=== PATIENT | male | born 1995 | race Caucasian/White ===

== ENCOUNTER 2020-04-04 10:07 | Emergency (ER) | payer BC, SELFPAY ==
[2020-04-04 10:30] VITALS: BP 149/71; PULSE 107; RESP 20; TEMP 36.9; O2SAT 97; BMI 26.7
--- NOTE | 2020-04-04 10:48 | HMH.EDUTC ---
[facility] [place] Clinical Impression: Exposure to COVID-19 virus Disposition: Home, Self-Care Condition on Discharge: Good Instructions: Preventing the Spread of Coronavirus Discharge Instructions Additional Instructions: Drink plenty of fluids. Take tylenol for pain or fever. Follow up with your regular doctor. GO TO THE ER FOR ANY WORSENING SYMPTOMS Referrals: Dalton Henderson MD [Primary Care Provider] - Time of Disposition: 10:51 Medical Decision Making - Medical Records Medical records reviewed: No: I reviewed the patient's medical records. - Booker Inquiry Pt receiving controlled substance: No Vital Signs: 04/04/20 10:30 04/04/20 10:55 Temperature 98.4 F 98.4 F Temperature Source Oral Pulse Rate 107 H Pulse Rate [Right Brachial] 107 H Respiratory Rate 20 20 Blood Pressure 149/71 H Blood Pressure [Right Arm] 149/71 H Blood Pressure Mean [Right Arm] 97 Blood Pressure Source [Right Arm] Automatic Cuff Blood Pressure Position [Right Arm] Sitting 02 Sat by Pulse Oximetry 97 Oxygen Delivery Method Room Air [facility] [place] HPI - General Stated complaint: covid exposure Time Seen by Provider: 04/04/20 10:48 Mode of Arrival: Ambulatory Source of Information: Patient Limitations: No Limitations Description of Symptoms (Recalled from Triage Doc. by RN): PATIENT REQUESTING COVID TEST D/T EXPOSURE; DENIES SYMPTOMS HEENT Symptoms (Recalled from RN notes): No Resp Symptoms (Recalled from RN notes): No Skin Symptoms (Recalled from RN notes): No MS Symptoms (Recalled from RN notes): No Functional Status (Recalled from RN notes): WNL - History of Present Illness Provider Complaint: His live-in girl friend has covid. He denies any symptoms in himself so far. - Related Data Allergies Allergy/AdvReac Type Severity Reaction Status Date / Time No Known Allergies Allergy Verified 04/04/20 10:45 - Worker's Comp Is this a Worker's Comp case?: No [facility] History - Hepatitis A Screen Drug use history?: No High risk sexual behaviors?: No History of sexually transmitted infection?: No Currently employed?: No Childcare worker?: No Do you have indoor plumbing?: Yes Do you have electricity?: Yes Attestation statement:: This patient has been screened for Hepatitis A risk factors. I have reviewed the patient's past medical history: Yes - Social History Alcohol Intake: never Occupational Status: other ROS Obtained: Yes All systems reviewed & no additional complaints - Constitutional Constitutional: Reports system reviewed and no additional complaints, except as docu - Eyes Eyes: Reports system reviewed and no additional complaints, except as docu - ENT Ears, Nose, Mouth, and Throat: Reports system reviewed and no additional complaints, except as docu - Cardiovascular Cardiovascular: Reports system reviewed and no additional complaints, except as docu - Respiratory Respiratory: Yes system reviewed and no additional complaints, except as docu - Gastrointestinal Gastrointestingal: Reports: system reviewed and no additional complaints, except as docu Physical Exam - General General appearance: alert, in no apparent distress - Head Head exam: atraumatic, normocephalic, normal inspection - Eye Eye exam: Present: normal appearance, PERRL, EOMI - ENT ENT exam: Present: normal exam, normal oropharynx, mucous membranes moist, TM's normal bilaterally, normal external ear exam - Neck Neck exam: Present: normal inspection, full ROM, trachea midline. Absent: meningismus, lymphadenopathy - Chest Chest inspection: Present: normal inspection, symmetric chest wall rise. Absent: tenderness - Respiratory Respiratory exam: Present: normal lung sounds bilaterally. Absent: respiratory distress - Cardiovascular Cardiovascular exam: Present: regular rate, normal rhythm. Absent: JVD - Abdominal Exam Abdominal exam: Present: soft, normal bowel sounds. Absent: distention, tend
[2020-04-04 10:55] VITALS: BP 149/71; PULSE 107; RESP 20; TEMP 36.9; O2SAT 97
== END 2020-04-04 10:56 | disposition home or self-care (01) ==
PROVIDERS: Emergency Provider Nurse Practitioner Family; PCP Family Medicine
DX: Z20.828 Contact with and (suspected) exposure to other viral communicable diseases (principal)
CPT/HCPCS: 99201; U0003

== ENCOUNTER 2022-04-22 07:52 | Emergency (ER) | payer SELFPAY ==
[2022-04-22 07:53] VITALS: BP 152/87; PULSE 87; RESP 16; TEMP 36.6; O2SAT 99; BMI 26.7
--- NOTE | 2022-04-22 07:58 | HMH.EDWNDL ---
Discharge Plan Disposition Patient Disposition: Home, Self-Care Condition: Good Referrals Follow up/Referrals: Provider,Monroe, [Primary Care Provider] - See instructions Clinical Impressions Clinical Impression: Laceration Instructions Patient Instructions: DI for Laceration Repair Print Language Print Language: Slovenian Discharge ED Provider: Meliza Lee Wound/Laceration HPI General Chief Complaint: Wound/Laceration Stated Complaint: cut on mirror right hand Time Seen by Provider: 04/22/22 08:00 History of Present Illness HPI narrative: 27-year-old male with no significant past medical history presenting to the emergency department for isolated laceration to the 3rd digits of (R) hand ventral aspect. Neurovascularly intact with no sensorimotor changes. Hemostasis not achieved on arrival, slight ooze. Up-to-date on Tdap. Onset (ago): minute(s) Extremity Location: Right: hand Place: home Patient tetanus UTD: Yes Context: accidental Associated symptoms: pain Related Data Allergies Allergy/AdvReac Type Severity Reaction Status Date / Time No Known Allergies Allergy Verified 04/04/20 10:45 [facility] Disclaimer: The information contained in this section may have been updated after the patient was seen, as this information can be updated by other users. Social History Smoking Status: Never smoker alcohol intake: never current occupational status: other Travel in the last 8 weeks: None ROS Obtained: Yes All systems reviewed & no additional complaints except as documented Physical Exam General General appearance: alert and in no apparent distress Head Head exam: atraumatic and normocephalic Eye Eye exam: Present normal appearance and EOMI ENT ENT exam: Present normal exam, normal oropharynx and mucous membranes moist Neck Neck exam: Present normal inspection and full ROM Chest Chest inspection: Present normal inspection and symmetric chest wall rise Respiratory Respiratory exam: Present normal lung sounds bilaterally Cardiovascular Cardiovascular exam: Present regular rate and normal rhythm Abdominal Exam Abdominal exam: Present soft and normal bowel sounds Back Exam Back exam: Present normal inspection and full ROM Neurological Exam Neurological exam: Present alert and oriented X3 Medical Decision Making Medical Records Medical records reviewed: Yes I reviewed the patient's medical records. Booker Inquiry Pt receiving controlled substance: No Vital Signs: 04/22/22 07:53 Temperature 97.9 F Temperature Source Oral Pulse Rate [Right Radial] 87 Respiratory Rate 16 Blood Pressure [Right Arm] 152/87 H Blood Pressure Mean [Right Arm] 108 Blood Pressure Source [Right Arm] Automatic Cuff Blood Pressure Position [Right Arm] Sitting 02 Sat by Pulse Oximetry 99 Oxygen Delivery Method Room Air Lab Data Lab results reviewed: Yes I reviewed the patient's lab results. Orders (Tests/Meds): ED MEDICATIONS Discontinued Medications Generic Name Dose Route Start Last Admin Trade Name Freq PRN Reason Stop Dose Admin Tetanus/Reduced Diphtheria/Acell Pertussis 0.5 ml 04/22/22 08:01 Tet/Diphth/Pert-Adult 0.5ml Syringe IM 04/22/22 08:02 .ONCE ONE Medical Decision Narrative: Isolated laceration Critical Care Time Critical Care Time Critical Care Time: No Attestation: On , the high probability of a clinically significant, sudden or life threatening deterioration of the following system(s) required my full and direct attention, intervention and personal management. The time I documented below is in addition to time spent performing reported procedures but includes the following listed in this critical care notation.
[2022-04-22 08:00] VITALS: BP 134/76; PULSE 83; RESP 16; O2SAT 98
[2022-04-22 08:30] VITALS: BP 130/85; PULSE 74; RESP 16; O2SAT 98
[2022-04-22 08:44] VITALS: BP 130/85; PULSE 78; RESP 16; TEMP 36.6; O2SAT 97
--- NOTE | 2022-04-22 08:45 | HMH.EDWNDL ---
Discharge Plan Disposition Patient Disposition: Home, Self-Care Condition: Good Referrals Follow up/Referrals: Provider,Referral, [Referring] - See instructions Clinical Impressions Clinical Impression: Laceration Instructions Patient Instructions: DI for Laceration Repair Print Language Print Language: Romanian Discharge ED Provider: Meliza Lee Wound/Laceration HPI General Chief Complaint: Wound/Laceration Stated Complaint: cut on mirror right hand Time Seen by Provider: 04/22/22 08:30 Mode of Arrival: Ambulatory Source of Information: Patient Limitations: No Limitations Description of Symptoms (Recalled from ER Triage Doc. by RN): Laceration with avulsion to R middle finger. Pt reports he was scrapping something off of a mirror and the mirror broke. Pt denies numbness/tingling or decreased sensation. History of Present Illness HPI narrative: Mr. Gandhi is a 27 yo male no significant PMH presenting to the ED for avulsion laceration to the (R) middle finger. Patient reports he scraped it against the mirror on his 3D printer. Patient reports since then it will not stop bleeding. He is not sure if he is up to date on tdap. Denies blood thinners. No sensoriomotor changes. Wound is superficial, low suspicion for retained product. Onset (ago): minute(s) Location: other (hand (R)) Extremity Location: Right: hand Place: home Patient tetanus UTD: No Context: accidental Associated symptoms: pain Related Data Allergies Allergy/AdvReac Type Severity Reaction Status Date / Time No Known Allergies Allergy Verified 04/04/20 10:45 [facility] Disclaimer: The information contained in this section may have been updated after the patient was seen, as this information can be updated by other users. Social History Smoking Status: Never smoker alcohol intake: never current occupational status: other Travel in the last 8 weeks: None ROS Obtained: Yes All systems reviewed & no additional complaints except as documented Physical Exam General General appearance: alert and in no apparent distress Head Head exam: atraumatic and normocephalic Eye Eye exam: Present normal appearance, PERRL and EOMI ENT ENT exam: Present normal exam, normal oropharynx and mucous membranes moist Neck Neck exam: Present normal inspection and full ROM Chest Chest inspection: Present normal inspection and symmetric chest wall rise Respiratory Respiratory exam: Present normal lung sounds bilaterally Cardiovascular Cardiovascular exam: Present regular rate and normal heart sounds Abdominal Exam Abdominal exam: Present soft and normal bowel sounds Extremities Exam Extremities exam: Present normal inspection, full ROM and other (Avulsion fracture over ventral aspect of (R) hand 3rd digit, distal. No sensory or motor changes. oozing. No discoloration of finger. ) Back Exam Back exam: Present normal inspection and full ROM Neurological Exam Neurological exam: Present alert and oriented X3 Skin Skin exam: Present warm and normal color Medical Decision Making Medical Records Medical records reviewed: Yes I reviewed the patient's medical records. Booker Inquiry Pt receiving controlled substance: No Vital Signs: 04/22/22 07:53 04/22/22 08:44 04/22/22 08:00 Temperature 97.9 F 97.9 F Temperature Source Oral Oral Pulse Rate 78 83 Pulse Rate [Right Radial] 87 Respiratory Rate 16 16 16 Blood Pressure 130/85 134/76 Blood Pressure [Right Arm] 152/87 H Blood Pressure Mean 95 Blood Pressure Mean [Right Arm] 108 Blood Pressure Source Automatic Cuff Blood Pressure Source [Right Arm] Automatic Cuff Blood Pressure Position Sitting Blood Pressure Position [Right Arm] Sitting 02 Sat by Pulse Oximetry 99 98 Oxygen Delivery Method Room Air Room Air Room Air 04/22/22 08:30 Temperature Temperature Source Pulse Rate 74 Pulse Rate [Right Radial] Respiratory Rate 16
== END 2022-04-22 08:45 | disposition home or self-care (01) ==
PROVIDERS: Emergency Provider Student in an Organized Health Care Education/Training Program; PCP Family Medicine
DX: S61.212A Laceration without foreign body of right middle finger without damage to nail, initial encounter (principal); X58.XXXA Exposure to other specified factors, initial encounter; Y93.9 Activity, unspecified; Y92.009 Unspecified place in unspecified non-institutional (private) residence as the place of occurrence of the external cause; Z23 Encounter for immunization
CPT/HCPCS: 90471; 90715; 99283

== ENCOUNTER → 2022-12-08 08:04 | Outpatient (CLI) | payer BC, SELFPAY ==
[2022-12-08 08:13] LABS: Microscopic, Urine URINE MICROSCOPIC (MICROSCOPIC)
[2022-12-08 08:30] LABS: Basophils # 0.1 K/mm3 (0-0.2); Basophils % 0.7 % (0.1-2.0); Eosinophils # 0.1 K/mm3 (0.0-0.4); Eosinophils % 1.3 % (0.1-12.0); Hematocrit 45.7 % (42.0-52.0); Hemoglobin 14.9 g/dL (14.1-18.0); Lymphocytes # 2.8 K/mm3 (0.7-4.5); Lymphocytes % 40.2 % (10-50); Mean Corpuscular HGB Conc 32.6 g/dL (31.8-35.4); Mean Corpuscular Hemoglobin 28.6 pg (27.0-31.2); Mean Corpuscular Volume 87.7 fl (80-94); Mean Platelet Volume 7.2 fl (7.4-10.4); Monocytes # 0.4 K/mm3 (0.1-1.0); Monocytes % 5.8 % (1.7-9.3); Neutrophils # 3.7 K/mm3 (1.8-7.8); Platelet Count 291 K/mm3 (142-424); Red Blood Count 5.21 M/mm3 (4.60-6.20); Red Cell Distribution Width 13.2 % (11.5-17.5)
[2022-12-08 08:49] LABS: Appearance,Urine CLEAR (Clear); Bilirubin,Urine Negative (Negative); Blood, Urine Negative (Negative); Color,Urine YELLOW (Yellow); Glucose,Urine (UA) Negative (Negative); Ketones,Urine Negative (Negative); Leukocyte Esterase,Urine Negative (Negative); Nitrate,Urine Negative (Negative); PH,Urine 6.5 (5.0-8.5); Protein,Urine Negative (Negative); Specific Gravity, Urine 1.025 (1.005-1.030); Urobilinogen,Urine 0.2 EU/dl (0.2)
[2022-12-08 09:00] LABS: Alanine Aminotransferase 32 U/L (12-78); Albumin Level 4.7 g/dl (3.5-5.0); Albumin/Globulin Ratio 1.6 (1.1-1.8); Alkaline Phosphatase 83 U/L (38-126); Anion Gap 15.5 mEq/L (5-15); Aspartate Amino Transferase 26 U/L (17-59); Bilirubin,Total 0.3 mg/dl (0.2-1.3); Blood Urea Nitrogen 15 mg/dl (9-20); Calcium 9.7 mg/dl (8.4-10.2); Carbon Dioxide 28 mmol/L (22.0-30.0); Chloride 106 mmol/L (98-107); Cholesterol 217 mg/dl (140-200); Estimated Glomerular Filt Rate 90 ml/min (>60); GFR (African American) 109 ML/MIN (>60); Glucose 98 mg/dl (74-100); HDL Cholesterol 43 mg/dl (40-60); Potassium 4.5 mmoL/L (3.5-5.1); Sodium 145 mmol/L (136-145); Total Protein,Serum 7.7 g/dl (6.3-8.2); Triglycerides 128 mg/dl (30-150); VLDL Cholesterol 26 mg/dL (0-40)
[2022-12-08 09:03] LABS: Bacteria,Urine Trace /lpf; Squamous Epithelial Cell,Urine Occasional #/hpf (0-5); WBC,Urine Occasional #/hpf (0-3)
[2022-12-08 09:05] LABS: Hemoglobin A1C 5.2 % (4.0-6.0)
[2022-12-08 09:12] LABS: Direct LDL Cholesterol 131.47 mg/dL (100-129)
[2022-12-08 09:19] LABS: Free Thyroxine Index 2.4 ug/dL (5.93-13.13); T4 (Thyroxine) 7.5 ug/dl (5.53-11.0); Triiodothryronine (T3) Uptake 32 % (23.5-40.5)
[2022-12-08 09:32] LABS: Thyroid Stimulating Hormone 1.48 uIU/mL (0.465-4.68)
[2022-12-08 09:49] LABS: Vitamin B12 282 pg/mL (239-931)
== END ==
PROVIDERS: PCP Nurse Practitioner Family; Visit Provider Nurse Practitioner Family
DX: I10 Essential (primary) hypertension (principal); R40.4 Transient alteration of awareness
CPT/HCPCS: 36415; 80053; 80061; 81001; 82607; 83036; 83735; 84436; 84443; 84479; 85025

== ENCOUNTER → 2023-01-02 14:27 | Outpatient (CLI) | payer BC, SELFPAY ==
--- NOTE | 2023-01-02 14:32 | CA_ITS ---
APPROVED REPORT EXAM: Comprehensive 2D, Doppler, and color-flow Echocardiogram Supervisor [employer] Department: Erica Harper, RT(R) Ht: 6 ft 4 in Wt: 225lbs BSA: 2.33 BP: 137/76 mmHg Indications: HTN, altered awareness, family history of HD, single episode of confusion Echo Enhancing Agent Indication: Rule out Shunt Agent(s) / Amount(s) Used: Agitated Saline 15 cc 2D Dimensions LVOT 1.99 cm (M/F) 1.5-2.5 M-Mode Dimensions RVDd 2.50 cm (0.9-2.6) LA Diam 3.30 cm (1.9-4.0) LVDd 5.10 cm (3.5-5.7) Ao Diam 2.73 cm (2.0-3.7) LVDs 3.93 cm (3.5-5.7) IVSd 0.93 cm (0.6-1.1) PWd 0.71 cm (0.6-1.1) EF (Teich) 45.80% FS 22.90% EDV (Teich) 123.80 mL ESV (Teich) 67.10 mL LV Diastology E Decel Time 233.00 (160-240 msec) E/A Ratio 2.0 MED E' 12.60 (< 7 cm/sec) E'/MED E' Ratio 7.78 (>14) LAT E' 20.50 (<10 cm/sec) E/LAT E' Ratio 4.78 (>14) Mitral Valve MV E Max Timothy. 98.00 (40-130 cm/s) MV A Velocity 50.00 (40-130 cm/s) E/A Ratio 1.98 MV Decel. Time 233.00 (160-240 ms) MV PHT 68.00 ms Left Ventricle The left ventricle is normal size. The left ventricular systolic function is normal. The left ventricular ejection fraction is within the normal range. There is normal left ventricular wall thickness. There is normal LV segmental wall motion. The left ventricular diastolic function is normal. LVEF is 60%. Right Ventricle The right ventricle is normal size. The right ventricular systolic function is normal. Atria The left atrium size is normal. The right atrium size is normal. Agitated saline administration at rest demonstrates no interatrial shunt. Agitated saline administration with Valsalva demonstrates presence of interatrial shunt (bubbles migrated from the RA to LA within 1-2 cardiac beats). Aortic Valve The aortic valve opens well. There is no aortic valvular stenosis. No aortic regurgitation is present. Mitral Valve The mitral valve is normal in structure. No evidence of mitral valve stenosis. There is no mitral valve regurgitation noted. Tricuspid Valve The tricuspid valve leaflets are thin and pliable. Trace tricuspid regurgitation. There is insufficient TR jet to estimate RVSP. Pulmonic Valve The pulmonary valve is normal in structure. Trace pulmonic regurgitation. Great Vessels The aortic root is normal in size. The ascending aorta is normal in size. IVC is normal in size and collapses >50% with inspiration. Pericardium There is no pericardial effusion. Other Information Study Quality: Fair Conclusion Normal biventricular systolic function. No significant valvular disease. No masses or obvious vegetations. Administration of agitated saline (bubble study) demonstrates presence of interatrial shunt (migration of bubbles from RA to LA within 2 cardiac beats with Valsalva) Electronically signed by : Denise Cheek, 01/03/2023 14:03:29
== END ==
PROVIDERS: PCP Nurse Practitioner Family; Visit Provider Nurse Practitioner Family
DX: I10 Essential (primary) hypertension (principal); R40.4 Transient alteration of awareness
CPT/HCPCS: 93306

== ENCOUNTER → 2023-01-10 16:30 | Outpatient (CLI) | payer BC, SELFPAY | PROVIDERS: PCP Nurse Practitioner Family; Visit Provider Nurse Practitioner Family | DX: R00.2 Palpitations (principal); Q21.12 Patent foramen ovale | CPT/HCPCS: 93225; 93226 ==

== ENCOUNTER → 2023-01-16 09:47 | Outpatient (CLI) | payer BC, SELFPAY ==
--- NOTE | 2023-01-16 09:56 | MR_ITS ---
FINAL REPORT CLINICAL HISTORY: PFO/TIA, hypertension, seeing spots, headaches, palpitations 20ml prohance injected COMPARISON: None FINDINGS: Multiplanar MR imaging of the brain was performed without and with contrast. There is mucoperiosteal thickening in the maxillary sinuses bilaterally, more prominent on the left, as well as in the sphenoid sinus. There is a small air-fluid level present in the left maxillary sinus.There is no evidence of intracranial hemorrhage or mass. No abnormal extra-axial fluid collection is seen. The ventricular size is within normal limits. There is no evidence of shift of the midline structures. The posterior fossa and brainstem have an unremarkable appearance. No area of abnormal restricted diffusion is identified. No abnormal contrast enhancement is seen. Normal major vessel vascular flow voids are noted. IMPRESSION: No acute intracranial abnormality identified. Acute and chronic sinusitis in the maxillary sinuses bilaterally and the sphenoid sinus. Reviewed, Interpreted and Dictated by Jose L Maciel MD Transcribed by Jana Nunez Authenticated and [facility]
== END ==
PROVIDERS: PCP Nurse Practitioner Family; Visit Provider Nurse Practitioner Family
DX: Q21.12 Patent foramen ovale (principal); G45.9 Transient cerebral ischemic attack, unspecified
CPT/HCPCS: 70553; A9576